=== PATIENT | female | born 2000 | race Caucasian/White ===

== ENCOUNTER 2023-08-23 02:01 | Emergency (ER) | payer OTHER, SELFPAY ==
[2023-08-23 02:14] VITALS: BP 131/92
[2023-08-23 02:30] VITALS: BMI 28.4
--- NOTE | 2023-08-23 02:32 | EDRN ---
Pt had a on Thursday and has been taking motrin 400mg alternating with 1000mg tylenol every 4 hours. Pt feels her chest 'has weight to it and I can't expand it like I usually do.' Pt adds 'When I close my eyes, I can feel my pulse.' Pt
has sob. Pt has swelling in legs and says the swelling is not going down today but was the last couple days while she was intermittently elevating them. Chest heaviness started 2 hours ago while pt was with her baby in NICU upstairs. Pt used her
inhaler thinking it might be asthma related but it did not help. Pt says she does not know if she is just stressed out or something is 'really going on.' Nothing relieves heaviness in chest now. Earlier this week pt had similar, less intense
heaviness that was relieved by sitting up. Pt denies nausea/vomiting, fever/chills/cough, leg pain.
[2023-08-23 02:41] VITALS: BP 129/96
[2023-08-23 02:53] LABS: % Basophils 0.2 % (0-2); % Immature Granulocytes 0.7 % (0-0.5); % Lymphocytes 14.8 % (20.5-51.1); % Monocytes 7.8 % (1.7-9.3); % Neutrophils 74.5 % (42.2-75.2); Absolute Eosinophils 0.3 10^3/uL (0-0.7); Absolute Immature Granulocytes 0.1 10^3/uL (0-0.05); Absolute Lymphocytes 2.3 10^3/uL (1.2-3.4); Absolute Monocytes 1.2 10^3/uL (0.1-0.6); Absolute Neutrophils 11.5 10^3/uL (1.4-6.5); Hematocrit 24.7 % (37.0-47.0); Hemoglobin 8.4 g/dL (12.0-16.0); Mean Corpuscular Hgb 31.8 pg (27.0-31.0); Mean Corpuscular Volume 93.6 fL (81.0-99.0); Mean Platelet Volume 9.3 fL (7.4-10.4); Nucleated Red Blood Cells % 0 %; Platelet Count 266 10^3/uL (130-400); Red Blood Cell Count 2.64 10^6/uL (4.20-5.40); Red Cell Dist. Width 12.3 % (11.5-14.5); White Blood Cell Count 15.4 10^3/uL (4.8-10.8)
[2023-08-23 03:00] VITALS: BP 125/85
[2023-08-23 03:04] LABS: ALT (SGPT) 27 U/L (0-35); AST (SGOT) 32 U/L (14-36); Albumin 2.9 g/dl (3.5-5.0); Alkaline Phosphatase 114 U/L (38-126); Blood Urea Nitrogen 10 mg/dl (7-17); Calcium 8.8 mg/dl (8.4-10.2); Carbon Dioxide 24 mmol/L (22-30); Chloride 109 mmol/L (98-107); Estimated Creatinine Clearance 122 ml/min; Glucose 88 mg/dl (70-99); Potassium 3.4 mmol/L (3.5-5.1); Sodium 140 mmol/L (135-145); Total Bilirubin 0.5 mg/dl (0.2-1.3); Total Protein 5.3 g/dl (6.3-8.2); eGFR > 60.00
[2023-08-23] MEDS: MAALOX 50 PO (03:11)
[2023-08-23 03:15] LABS: Troponin I < 0.012 ng/ml
[2023-08-23 04:00] VITALS: BP 126/77
--- NOTE | 2023-08-23 04:02 | ED.GENMED ---
History of Present Illness
General
Chief Complaint: Chest Pain
Source: patient
Exam Limitations: none
Time Seen by Provider: 08/23/23 02:28
Nursing documentation reviewed up to this point in time: agreed with
Travel History
Have you had any contact with someone who has COVID-19?: No
Do you have any symptoms of coronavirus? Fever > 100 degrees, chills, cough, shortness of breath, sore throat, loss of taste or smell, muscle aches, or headache?: No
History of Present Illness
History of Present Illness:
This is a 23-year-old woman 1 para 1 status post 4 days ago. She was discharged to home with her infant but is currently 'rooming in' with her infant in the NICU who is currently undergoing bili light therapy for
hyperbilirubinemia.
She has been taking Tylenol along with ibuprofen for postop pain and tonight she awoke with mid upper substernal chest discomfort, heaviness in nature. She does have history of GERD but believes current chest pain feels different from her prior
episodes of GERD.
She denies nausea nor vomiting, denies cough nor shortness of breath, no leg pain or swelling.
She does admit to moderate stress, worry about her infant and with onset of chest pain tonight she became concerned when she could feel her heart beating somewhat hard in her chest. She denies a sense of her heart skipping beats nor beating
rapidly. No dizziness nor lightheadedness.
Past History
Past History
ED Past Medical History: GERD
ED Past Surgical History:
Social History
Tobacco: Non-smoker
Alcohol: None
Drug: None
Living: with family
Family History
Family History: Other (Noncontributory)
Phy Exam
Physical Exam
Physical Exam:
GENERAL: 23-year-old female appears her stated age, bright and alert, pleasant, appears in no acute distress.
EYE: anicteric
NECK: Supple, nontender, no meningismus, no significant adenopathy.
ENT: oral mucosa is moist. No rhinorrhea.
CARDIAC: Regular rate and rhythm. no murmur. No palpable chest wall tenderness.
LUNGS: Clear breath sounds bilaterally, no acute respiratory distress, no wheezes/rales/rhonchi
ABDOMEN: Soft, nondistended, without focal tenderness, normoactive BS.
NEUROLOGICAL: Alert and oriented x3, no focal neuro deficits. Gait is steady.
SKIN: Warm and dry, mildly pale in color, skin intact. No rash.
MUSCULOSKELETAL: No C/C/E. peripheral pulses are full and equal b/l. No palpable tenderness. Negative Homans.
PSYCH: Normal and appropriate interaction.
Scores
Heart Score for Chest Pain Patients
STEMI patient?: No
History: Slightly or Non-Suspicious
ECG: Normal
Age: </= 45 years
Risk Factors: No Risk Factors
Troponin: </= Normal Limit
Heart Score for Chest Pain Patients: 0
Heart Score Risk: 2.5% MACE over next 6 weeks
Course
Orders/Labs/Results
Orders:
Orders
08/23/23 02:19
ECG [Electrocardiogram (*1)] Urgent
Reason for Study: Chest Pain
Cardiology Consult: Unknown
08/23/23 02:20
EKG- Treatment ONCE
08/23/23 02:38
Cardiac Monitoring- Treatment ONCE
IV Insert/Care/Rem.- Treatment PRN
O2 Therapy [RESP] Urgent
Titrate/Wean O2 to maintain O2 sat greater than (%): 90
Special Instructions: Maintain sats >/=90%
Pulse Ox/spot Check [RESP] Urgent
Quantity: 1
Special Instructions: ON ROOM AIR
08/23/23 02:39
Complete Blood Count/With Diff Urgent
Comprehensive Metabolic Panel Urgent
Troponin I Urgent
08/23/23 02:58
Mag Hydrox/Al Hydrox/Simeth [Maalox] 30 ml Phenobarb/Hyoscy/Atropine/Scop [] 10 ml Viscous Lidocaine 2% [Xylocaine Viscous Cup] 10 ml PO NOW
08/23/23 03:08
Mag Hydrox/Al Hydrox/Simeth [Maalox] 30 ml .ROUTE .STK-MED ONE
Phenobarb/Hyoscy/Atropine/Scop [] 10 ml .ROUTE .STK-MED ONE
Viscous Lidocaine 2% [Xylocaine Viscous Cup] 15 ml .ROUTE .STK-MED ONE
Abnormal Lab Results
08/23/23
02:39
WBC 15.4 H 10^3/uL
(4.8-10.8)
RBC 2.64 L 10^6/uL
(4.20-5.40)
Hgb 8.4 L g/dL
(12.0-16.0)
Hct 24.7 L %
(37.0-47.0)
MCH 31.8 H pg
(27.0-31.0)
Abs Immat Gran (auto) 0.1 H 10^3/uL
(0-0.05)
Absolute Neuts (auto) 11.5 H 10^3/uL
(1.4-6.5)
Absolute Monos (auto) 1.2 H 10^3/uL
(0.1-0.6)
Immature Gran % 0.7 H %
(0-0.5)
Lymphocytes % 14.8 L %
(20.5-51.1)
Potassium 3.4 L mmol/L
(3.5-5.1)
Chloride 109 H mmol/L
(98-107)
Creatinine 0.5 L mg/dL
(0.6-1.0)
Total Protein 5.3 L g/dl
(6.3-8.2)
Albumin 2.9 L g/dl
(3.5-5.0)
08/23/23 02:39
08/23/23 02:39
Vital Signs
Initial and Last Documented VS:
Initial Vital Signs
Temp Pulse Resp BP Pulse Ox
98.3 F 78 20 131/92 100
08/23/23 02:14 08/23/23 02:14 08/23/23 02:14 08/23/23 02:14 08/23/23 02:14
Last Documented Vital Signs
Temp Pulse Resp BP Pulse Ox
98.3 F 70 14 125/85 100
08/23/23 02:14 08/23/23 03:00 08/23/23 03:00 08/23/23 03:00 08/23/23 03:00
MDM/Problems Addressed
Differential Diagnosis Includes:
Concern for GERD, less likely ACS. As patient is 4 days post op/ there is potential for thromboembolism but she has been up and about over the past 4 days. No leg pain or swelling. No shortness of breath nor dyspnea on exertion. No
prior history of thromboembolism nor family history of such thus PE is less likely.
EKGs unremarkable, normal sinus rhythm, normal axis, normal intervals.
Will trial a GI cocktail. If no improvement in pain we will consider imaging.
*Pulse Oximetry
Patient hypoxic: no
*EKG
Interpreted by ED Provider?: Yes
Interpretation: normal
Comparison EKG: no comparison EKG present
Rate: normal
Rhythm: sinus
[place]: normal axis
Interval: normal interval
QRS Pattern: normal QRS
Ischemia: no ischemia
*Roll Coverer Interpretation
Rate: normal
Interpretation: normal
Rhythm: sinus
*Critical Care Note
Total Time (30-74mins, 75-104mins- exclusive of procedures): Not Applicable
Update Note
Update Note:
Patient reports complete relief of chest discomfort after GI cocktail.
I suspect GERD as cause for chest pain, likely exacerbated by recent NSAID use status post .
She does have prior history of GERD.
Labs show moderate anemia, consistent with recent . She remains hemodynamically stable, without orthostasis.
Chemistries are unremarkable save for very mild hypokalemia at 3.4. Normal troponin.
Will add a short course of Pepcid and recommend she avoid NSAIDs, at least temporarily. She can continue acetaminophen as needed for pain.
Prompt follow-up with PCP for recheck.
ED Attending Note
-
Portions of this chart may have been created with voice recognition software.� Occasional wrong word or��sound alike� substitutions may have occurred due to the inherent limitations of voice recognition software.
Discharge Plan
Departure
Patient Disposition: Home (Routine Discharge)
Date of Disposition: 08/23/23
Time of Disposition: 04:02
Patient with high blood pressure during this ER visit?: No
Condition: Good
Discharge Problem:
Acute GERD
Instructions: Acid Reflux and GERD in Adults (DC)
Prescriptions:
New
famotidine [Pepcid] 40 mg tablet
40 mg PO DAILY Qty: 30 0RF
No Action
ibuprofen [Motrin] 400 mg Tablet
400 mg PO Q4H
acetaminophen 500 mg Capsule
1,000 mg PO Q4H
Referrals:
Sonal Jha MD, Resident [Family Provider] - As needed
Interventions
Interventions:
*Risk Screen - Suicide Last Done: 08/23/23 02:14
*General Assessment Last Done: 08/23/23 02:14
*Neglect/Abuse Screening Last Done: 08/23/23 02:14
ED- Fall Risk Assessment Last Done: 08/23/23 02:14
*ED COVID-19 Vaccine History Last Done: 08/23/23 02:14
ED- Cardiac Assessment Last Done: 08/23/23 02:44
Discharge Date and Time
Print Language: [email or web address]
[2023-08-23] MEDS: PEPCID 40 MG PO (04:09)
== END 2023-08-23 04:25 | disposition home or self-care (01) ==
LOC: EMR 02:01
PROVIDERS: EMERGENCY PHYSICIAN Emergency Medicine; FAMILY PHYSICIAN Student in an Organized Health Care Education/Training Program
DX: K21.9 Gastro-esophageal reflux disease without esophagitis (principal)
CPT/HCPCS: 99284; 80053; 84484; 85025; 93005

== ENCOUNTER → 2024-11-15 09:53 | Outpatient (REF) | payer SELFPAY | LOC: HWRAD 09:53 | PROVIDERS: ATTENDING PHYSICIAN Student in an Organized Health Care Education/Training Program; FAMILY PHYSICIAN Student in an Organized Health Care Education/Training Program | DX: R19.09 Other intra-abdominal and pelvic swelling, mass and lump (principal) | CPT/HCPCS: 76882 ==